=== PATIENT | female | born 1950 | race Caucasian/White ===

== ENCOUNTER 2017-03-15 12:15 | Day surgery (SDC) | payer MEDICARE ==
[~2017-03-15] VITALS: Ht 165.1 cm; Wt 49.9 kg
[~2017-03-15 12:15] MED LIST: ALEN70TA2 PO; CALC600T12 PO; OMEG300C3 PO
[2017-03-15] MEDS ORDERED: fentaNYL-PF 50 mCg/mL 2 mL Inj IVPUSH PRN (12:25)
[2017-03-15 12:26] VITALS: BP 135/88; PULSE 71; RESP 14; O2SAT 100
[2017-03-15] MEDS ORDERED: 0.9% Sodium Chloride 1,000 ML IV ONE ×2 (12:42)
[2017-03-15 14:34] VITALS: BP 138/67; PULSE 65; RESP 16; O2SAT 100
[2017-03-15 14:44] VITALS: BP 148/84; PULSE 58; RESP 16; O2SAT 100
[2017-03-15 14:54] VITALS: BP 139/94; PULSE 52; RESP 16; O2SAT 100
[2017-03-15] MEDS ORDERED: Sodium Chloride LOK Flush 10 mL Syringe IVFLUSH SCH (16:30)
--- NOTE | 2017-03-16 10:49 | ENDO ---
[address] [address] ENDOSCOPY PROCEDURE PATIENT: WADE OLIVAREZ : 1950 MR#: [id number] ADMIT: 03/15/2017 JOB ID: [id number] DATE OF SERVICE: 03/15/2017 PREPROCEDURAL DIAGNOSES: 1. Colon cancer screening. 2. Family history of colon cancer and colon polyps. POSTPROCEDURE DIAGNOSES: 1. Colon cancer screening. 2. Family history of colon cancer and colon polyps. PROCEDURE PERFORMED: Colonoscopy. SURGEON: Beatrice Miguel MD. INSTRUMENT: [employer] [id number]. MEDICATIONS: 1. Versed 6 mg. 2. Fentanyl 150 mcg. WITHDRAWAL TIME: 12 minutes. HISTORY OF PRESENT ILLNESS: This is a 66-year-old woman with a history of a normal colonoscopy herself, and with a family history of colon polyps in her mother, and colon cancer in her grandmother. Screening colonoscopy was performed for detection of polyps and malignancy. FINDINGS: Normal colonoscopy to the cecum; normal distal terminal ileum. DESCRIPTION OF PROCEDURE: The patient was brought to the procedure suite and placed in left lateral decubitus position. Moderate anesthesia was induced. A digital rectal examination was performed and was normal. The colon was cannulated and was found to be long and tortuous. The prep was good. The cecum was reached and the terminal ileum was intubated, which was normal for approximately 5 cm. The appendiceal orifice was identified. The withdrawal time was 12 minutes. There were no strictures, masses, polyps, or other mucosal abnormalities. Retroflex examination of the rectum was normal. The scope was withdrawn. The patient tolerated the procedure well. ESTIMATED BLOOD LOSS: None. COMPLICATIONS: None. SPECIMENS: None. [facility]
== END 2017-03-15 23:59 | disposition home or self-care (01) ==
LOC: END 12:15
PROVIDERS: ATTEND Surgery
PROC: 0DJD8ZZ Inspection of Lower Intestinal Tract, Via Natural or Artificial Opening Endoscopic (ICD-10-PCS; principal; 2017-03-15 13:00)
DX: Z12.11 Encounter for screening for malignant neoplasm of colon (principal); Z80.0 Family history of malignant neoplasm of digestive organs; Z83.71 Family history of colonic polyps
CPT/HCPCS: 99153; G0105; G0500; J7030